=== PATIENT | male | born 1970 | race Caucasian/White ===

== ENCOUNTER 2019-01-10 01:13 | Emergency (ER) | payer OTHER ==
[~2019-01-10] VITALS: Ht 162.6 cm; Wt 62.6 kg
[~2019-01-10 01:13] MED LIST: OXYACE5T PO; PENVK500 PO; RXOXYACE PO; [UNRECOGNIZED DRUG - OTHER]
[2019-01-10] MEDS ORDERED: Keflex500 MG PO (03:18)
[2019-01-10] MEDS ORDERED: Bactrim Ds Tab1 EACH PO (03:18)
== END 2019-01-10 03:40 | disposition home or self-care (01) ==
LOC: ER 01:13
DX: L03.116 Cellulitis of left lower limb (principal); F17.200 Nicotine dependence, unspecified, uncomplicated
CPT/HCPCS: 99283

== ENCOUNTER 2020-07-20 14:34 | Emergency (ER) | payer OTHER ==
[~2020-07-20] VITALS: Ht 162.6 cm; Wt 68.0 kg
[~2020-07-20 14:34] MED LIST changes: +Bactrim Ds Tab1 EACH PO; +Keflex500 MG PO
[2020-07-20] MEDS ORDERED: CYCL10 PO (16:53)
[2020-07-20] MEDS ORDERED: HYDR1TAB94 PO (16:53)
== END 2020-07-20 17:02 | disposition home or self-care (01) ==
LOC: ER 14:34
DX: S76.111A Strain of right quadriceps muscle, fascia and tendon, initial encounter (principal); F17.210 Nicotine dependence, cigarettes, uncomplicated; X58.XXXA Exposure to other specified factors, initial encounter
CPT/HCPCS: 93971; 99283-25; A9270